=== PATIENT | male | born 1980 | race African-American/Black ===

== ENCOUNTER 2018-05-21 16:40 | Emergency (ER) | payer SELFPAY | END 2018-05-21 17:37 | disposition home or self-care (01) | LOC: ERS 16:40 | DX: K46.9 Unspecified abdominal hernia without obstruction or gangrene (principal); F17.210 Nicotine dependence, cigarettes, uncomplicated | CPT/HCPCS: 99282 ==

== ENCOUNTER 2020-07-07 01:54 | Emergency (ER) | payer SELFPAY ==
[2020-07-07] MEDS ORDERED: Ziprasidone 20 MG VIAL ONE (02:02)
[2020-07-07] MEDS ORDERED: Sterile Water 10 ML ONE (02:02)
== END 2020-07-07 02:31 ==
LOC: ERS 01:54
DX: Z02.89 Encounter for other administrative examinations (principal); F17.210 Nicotine dependence, cigarettes, uncomplicated
CPT/HCPCS: 96372; 99283; J3486

== ENCOUNTER 2022-01-24 16:30 | Emergency (ER) | payer SELFPAY ==
[2022-01-24 17:12] LABS: Hemoglobin 12.1 g/dL (14.0-18.0); Mean Corpuscular HGB CONC 30.9 g/dL (32.0-36.0); Mean Corpuscular Hemoglobin 32.1 pg (27.0-31.0); Mean Platelet Volume 8.3 fL (7.4-10.4); Platelet Count 244 thou/uL (130-400); Red Blood Cell (RBC) Count 3.78 mill/uL (4.70-6.10); White Blood Cell (WBC) Count 11.3 thou/uL (4.8-10.8)
[2022-01-24 17:33] LABS: ALT (SGPT) 91 U/L (8-55); AST (SGOT) 90 U/L (5-34); Albumin 3.5 g/dL (3.5-5.0); Alkaline Phosphatase 89 U/L (40-110); Anion Gap 13 mmol/L (10-20); BUN (Urea Nitrogen) 12 mg/dL (8.9-20.6); Bilirubin, Total 0.7 mg/dL (0.2-1.2); Calc. Creatinine Clearance 0 mL/min (70-130); Calcium 9.3 mg/dL (7.8-10.44); Carbon Dioxide 24 mmol/L (22-29); Chloride 102 mmol/L (98-107); Estimated GFR 112; Globulin 5.4 g/dL (2.4-3.5); Glucose 121 mg/dL (70-105); Potassium 3.8 mmol/L (3.5-5.1); Protein, Total 8.9 g/dL (6.0-8.3); Sodium 135 mmol/L (136-145)
[2022-01-24 17:36] LABS: Band 5 % (5-11); Eosinophils 1 % (0-10); Lymphocytes 16 % (21-51); MDiff Complete? YES; Macrocytosis SLIGHT = 6-15 cells (100X) (0-5/hpf); Monocytes 6 % (0-10); Neutrophil 70 % (42-75); Platelet Morphology Comment Appears Adequate; Reactive Lymphocytes 2 % (0-10)
== END 2022-01-24 18:01 | disposition home or self-care (01) ==
LOC: ERS 16:30
DX: R20.2 Paresthesia of skin (principal); F17.210 Nicotine dependence, cigarettes, uncomplicated
CPT/HCPCS: 36415; 80053; 85025; 99284

== ENCOUNTER 2022-05-06 15:40 | Emergency (ER) | payer SELFPAY | END 2022-05-06 17:07 | disposition home or self-care (01) | LOC: ERS 15:40 | DX: G57.93 Unspecified mononeuropathy of bilateral lower limbs (principal); F17.210 Nicotine dependence, cigarettes, uncomplicated | CPT/HCPCS: 99283 ==

== ENCOUNTER 2024-12-21 15:12 | Emergency (ER) | payer OTHER | END 2024-12-21 16:00 | disposition home or self-care (01) | LOC: ERS 15:12 | DX: S82.402A Unspecified fracture of shaft of left fibula, initial encounter for closed fracture (principal); F17.210 Nicotine dependence, cigarettes, uncomplicated; V29.91XA Electric (assisted) bicycle rider (driver) (passenger) injured in unspecified traffic accident, initial encounter | CPT/HCPCS: 27781; 99283 ==